=== PATIENT | male | born 1960 | race Two or more races ===

== ENCOUNTER 2017-03-01 07:57 | Observation (INO) | payer BC, OTHER ==
[2017-03-01] MEDS ORDERED: ASPIRIN 81 MG CHEWABLE TABLETS PO ONE (08:38)
[2017-03-01 08:59] LABS: BASOPHIL 1.4 % (0-2.0); EOSINOPHIL 5.8 % (0-4.5); MCH 29.6 pg (25.7-33.7); MCHC 34.6 g/dl (32.0-35.9); MEAN CELL VOLUME 85.7 fl (80-96); MEAN PLT VOLUME 8.6 fl (7.5-11.1); NEUTROPHILS 49.4 % (42.8-82.8); PLATELET COUNT 236 K/MM3 (134-434); RDW 13.2 % (11.9-15.9); WHITE BLOOD COUNT 5.3 K/mm3 (4.0-10.0)
[2017-03-01 09:22] LABS: INR 1.06 (0.82-1.09); PROTHROMBIN TIME (PATIENT) 11.7 SEC (9.98-11.88)
[2017-03-01 09:27] LABS: ALBUMIN 3.8 g/dl (3.4-5.0); ANION GAP 11 (8-16); BILIRUBIN,TOTAL 0.6 mg/dL (0.2-1.0); CALCIUM 8.9 mg/dL (8.5-10.1); CO2 24 mmol/L (21-32); COCKROFT - GAULT 145.24; CREATININE 0.9 mg/dL (0.7-1.3); GLUCOSE,RANDOM 106 mg/dL (74-106); MAGNESIUM 1.9 mg/dL (1.8-2.4); SGPT/ALT 49 U/L (12-78)
[2017-03-01 09:30] LABS: ALK PHOS 68 U/L (45-117); TROPONIN I < 0.02 ng/ml (0.00-0.05)
[2017-03-01 09:33] LABS: SGOT/AST 35 U/L (15-37)
--- NOTE | 2017-03-01 09:52 | PDOC ---
History of Present Illness - General Chief Complaint: Chest Pain Stated Complaint: CHEST PAIN Time Seen by Provider: 03/01/17 08:28 History Source: Patient, Significant Other Exam Limitations: No Limitations - History of Present Illness Initial Comments: 03/01/17 09:54 HPI: This 56 yr old male presents to ER with his with c/o chest pain, dizziness and near syncope upon awaking this morning. He has a significant hx of cardiac stents. Two stents were placed in Dec 2016 and one stent was placed on this past Wednesday in [place]. His sericulturist is Dr. Frank. He took his morning medications prior to coming in . Denies shortness of breath, nausea vomiting, headache, neuro changes, fever. He states since his arrival to the ER he is chest pain free. Chief Compliant: chest pain, near syncope Pain location:midsternal pain Duration: one hour Modifying factors:recent stent placement Quality: squeezing Radiating:to the left side of chest wall Severity: moderate Time: now resolved. PMH: CAD, gout, HLD, HTN FH: Pt has not recently traveled outside the country in the last 30 days. Pt has not been in contact with people who have traveled out of the country, in contact with people who have been ill with fever, n, v, d. SH: smoking use: NONE illicit drug use: NONE alcohol use: NONE employment/educational status: sexual history: PSH: cardiac stents x 3 Home med use noted on JAN Allergies: NKA PCP: Dr. Jensen Cards: Dr. Frank Past History - Past Medical History Allergies/Adverse Reactions: Allergies Allergy/AdvReac Type Severity Reaction Status Date / Time No Known Allergies Allergy Verified 03/01/17 08:10 Home Medications: Ambulatory Orders Aspirin [Ecotrin] 81 mg PO DAILY 05/14/15 Colchicine 0.6 mg PO BID #30 tablet 05/14/15 Gemfibrozil 600 mg PO DAILY 05/14/15 Lisinopril [Prinivil -] 20 mg PO DAILY 05/14/15 Metoprolol Succinate [Toprol Xl -] 25 mg PO DAILY 05/14/15 Multivitamins [Tab-A-Vit -] 1 tab PO DAILY 05/14/15 Oxycodone HCl/Acetaminophen [Percocet 5/325 -] 1 tab PO Q6H #10 tablet 05/14/15 Cardiac Disorders: Yes (CAD) HTN: Yes Hypercholesterolemia: Yes - Surgical History Appendectomy: Yes Cardiac Surgery: Yes (STENTS X 3) - Psycho/Social/Smoking Cessation Hx Anxiety: No Suicidal Ideation: No Smoking History: Current some day smoker Have you smoked in the past 12 months: Yes Number of Cigarettes Smoked Daily: 5 Information on smoking cessation initiated: Yes 'Breaking Loose' booklet given: 03/01/17 Hx Alcohol Use: No Drug/Substance Use Hx: No Substance Use Type: Alcohol Cardiac Specific PMH - Complaint Specific PMHX Cardiac Stent: Yes Review of Systems - Review of Systems Able to Perform ROS?: Yes Comments:: 03/01/17 10:11 General statement: "I had chest pain and was dizzy this morning" Hematology: neg history of bleeding/blood thinners on Gemfibrozil Skin: Neg for lesions, rash, bruising. HEENT: Neg symptoms Respiratory: Neg SOB or difficulty in breathing Cardiac: +chest pain GI: Neg pain, n/v : Neg problems on voiding MS: Neg for joint pain/stiffness, no edema Neuro: Neg for LOC, weakness,+ dizzy Endocrine: Neg for excess thirst/hunger, cold/heat intolerance, excess sweating Allergies: Neg for allergies *Physical Exam - Vital Signs Last Vital Signs Temp Pulse Resp BP Pulse Ox 98.6 F 69 18 160/97 100 03/01/17 08:10 03/01/17 08:10 03/01/17 08:10 03/01/17 08:10 03/01/17 08:10 - Physical Exam Comments: 03/01/17 10:12 General Appearance: This well appearing obese male presents with + chest pain and + dizziness V/S: hemodynamically stable, afebrile Skin: WNL of pt's skin color, no signs of pallor, mottling, cyanosis Head:symmetrical Eyes: EOM's intact, PERRLA Ears: denies pain Nose: patent Throat: lips, teeth, gums, tongue, buccal mucos pink and moist Lungs: Chest symmetry equal. Cap refill <3 seconds. Lung sounds clear Cardiac: PMI at R 4MCL space, pos S1 and S2, regular rate. Abdomen: Soft, round, nontender : Not observed Muscularskeletal: Gait steady, ambulated in to ER, no edema +PMS Neuro: AAOx3, cognitively intact, speech clear and appropriate. Heart Score/ECG Review - History History: Highly suspicious - Electrocardiogram EKG: Non specific repolarization disturbance - Age Age: 45-65 - Risk Factors Risk Factors Heart Score: Yes Hx Hypercholesterolemia, Yes Hx Hypertension, Yes Smoking History, Yes Positive family hx of cardiac disease, Yes Hx Obesity Based on the list above the patient has:: >/=3 risk factors or Hx atherosclerotic disease - Troponin Troponin: </= normal limit - Score Heart Score - Total: 6 ED Treatment Course - LABORATORY CBC & Chemistry Diagram: 03/01/17 08:40 03/01/17 08:40 - ADDITIONAL ORDERS Additional order review: Laboratory Results 03/01/17 03/01/17 03/01/17 08:40 08:40 08:40 INR 1.06 Sodium 139 Potassium 4.4 Chloride 104 Carbon Dioxide 24 Anion Gap 11 BUN 12 Creatinine 0.9 D Creat Clearance w eGFR > 60 Random Glucose 106 Calcium 8.9 Magnesium 1.9 Total Bilirubin 0.6 AST 35 D ALT 49 D Alkaline Phosphatase 68 D Creatine Kinase 208 Creatine Kinase Index 0.8 CK-MB (CK-2) 1.551 CK-MB (CK-2) Rel Index Cancelled Troponin I < 0.02 Total Protein 7.0 Albumin 3.8 03/01/17 08:40 RBC 4.95 MCV 85.7 MCHC 34.6 RDW 13.2 MPV 8.6 Neutrophils % 49.4 D Lymphocytes % 35.4 D Monocytes % 8.0 Eosinophils % 5.8 H Basophils % 1.4 D - RADIOLOGY Radiology Studies Ordered: Category Date Time Status CHEST X-RAY PORTABLE* [RAD] Stat Radiology 03/01/17 08:39 Completed - Medications Given in the ED: ED Medications Discontinued Medications Generic Name Dose Route Start Last Admin Trade Name Freq PRN Reason Stop Dose Admin Aspirin 162 mg 03/01/17 08:38 03/01/17 08:54 Asa - PO 03/01/17 08:39 162 mg ONCE ONE Administration Medical Decision Making - Critical Care Time Total Critical Care Time (minutes): 30 Critical Care Statement: The care of this patient involved high complexity decision making to prevent further life threatening deterioration of the patient 's condition and/or to evalute & treat vital organ system(s) failure or risk of failure. - Medical Decision Making 03/01/17 10:14 A/P 56 year old male with c/o chest pain and dizziness this morning with a significant recent cardiac stent placed. 1. Chest pain and near syncope -ASA 162 po given -EKG with T wave abnormalities in Lead I, AVL, V4, 5, 6 without old EKG to compare to -Spoke with Dr. Frank who will see pt - first troponin negative -Admit to telemetry inpt. Spoke with Dr. Chapman who was suppose to be admitting for Dr. Jensen however wanted pt to be admitted to service today spoke wit Dr Fraser for admitting Tele obs. *DC/Admit/Observation/Transfer Diagnosis at time of Disposition: Chest pain, Near syncope - Discharge Dispostion Condition at time of disposition: Guarded Admit: Yes - Referrals Referrals: Doyle Jensen [Primary Care Provider] -
--- NOTE | 2017-03-01 10:15 | CON.CARD ---
Consult Consult Specialty:: Cardiology - History of Present Illness History of Present Illness: This 56 yr old male presents to ER with his with c/o chest pain, dizziness and near syncope upon awaking this morning. He has a significant hx of cardiac stents. Two stents were placed LAD in Dec 2016 and one stent was placed D1 on this past Wednesday at [facility]. He took his morning medications prior to coming in . Denies shortness of breath, nausea vomiting, headache, neuro changes, fever. He states since his arrival to the ER he is chest pain free. patient describe his discomfort as tingling radiating from the chest to the left side of his face. - History Source History Provided By: Patient, Medical Record - Past Medical History Cardio/Vascular: Yes: CAD, HTN, Hyperlipdemia - Alcohol/Substance Use Hx Alcohol Use: No - Smoking History Smoking history: Current some day smoker Have you smoked in the past 12 months: Yes Aproximately how many cigarettes per day: 5 Home Medications - Allergies Allergies/Adverse Reactions: Allergies Allergy/AdvReac Type Severity Reaction Status Date / Time No Known Allergies Allergy Verified 03/01/17 08:10 - Home Medications Home Medications: Ambulatory Orders Aspirin [Ecotrin] 81 mg PO DAILY 05/14/15 Colchicine 0.6 mg PO BID #30 tablet 05/14/15 Gemfibrozil 600 mg PO DAILY 05/14/15 Lisinopril [Prinivil -] 20 mg PO DAILY 05/14/15 Metoprolol Succinate [Toprol Xl -] 25 mg PO DAILY 05/14/15 Multivitamins [Tab-A-Vit -] 1 tab PO DAILY 05/14/15 Oxycodone HCl/Acetaminophen [Percocet 5/325 -] 1 tab PO Q6H #10 tablet 05/14/15 Review of Systems - Review of Systems Constitutional: reports: No Symptoms Eyes: reports: No Symptoms HENT: reports: No Symptoms Neck: reports: No Symptoms Cardiovascular: reports: Chest Pain Gastrointestinal: reports: No Symptoms Genitourinary: reports: No Symptoms Breasts: reports: No Symptoms Reported Musculoskeletal: reports: No Symptoms Integumentary: reports: No Symptoms Neurological: reports: No Symptoms Endocrine: reports: No Symptoms Hematology/Lymphatic: reports: No Symptoms Psychiatric: reports: No Symptoms Vital Signs: Vital Signs Temperature 98.6 F 03/01/17 08:10 Pulse Rate 69 03/01/17 08:10 Respiratory Rate 18 03/01/17 08:10 Blood Pressure 160/97 03/01/17 08:10 O2 Sat by Pulse Oximetry (%) 100 03/01/17 08:10 Constitutional: Yes: Well Nourished, No Distress, Calm Eyes: Yes: WNL, Conjunctiva Clear, EOM Intact HENT: Yes: WNL, Atraumatic, Normocephalic Neck: Yes: WNL, Supple, Trachea Midline Respiratory: Yes: WNL, Regular, CTA Bilaterally Gastrointestinal: Yes: WNL, Normal Bowel Sounds Renal/: Yes: WNL Cardiovascular: Yes: WNL, Regular Rate and Rhythm Heart Sounds: Yes: S1, S2 Murmur: Yes: Systolic Murmur, Grade 2 Musculoskeletal: Yes: WNL Extremities: Yes: WNL Integumentary: Yes: WNL Neurological: Yes: WNL, Alert, Oriented ...Motor Strength: WNL Psychiatric: Yes: WNL, Alert, Oriented - Other Data Labs, Other Data: CBC, BMP 03/01/17 08:40 03/01/17 08:40 INR, PTT INR 1.06 (0.82-1.09) 03/01/17 08:40 Troponin, BNP 03/01/17 08:40 Troponin I < 0.02 Troponin, BNP 03/01/17 08:40 Troponin I < 0.02 Laboratory Tests 03/01/17 03/01/17 03/01/17 08:40 08:40 08:40 WBC 5.3 D RBC 4.95 Hgb 14.7 Hct 42.4 MCV 85.7 MCHC 34.6 RDW 13.2 Plt Count 236 MPV 8.6 Neutrophils % 49.4 D Lymphocytes % 35.4 D Monocytes % 8.0 Eosinophils % 5.8 H Basophils % 1.4 D INR 1.06 Sodium 139 Potassium 4.4 Chloride 104 Carbon Dioxide 24 Anion Gap 11 BUN 12 Creatinine 0.9 D Creat Clearance w eGFR > 60 Random Glucose 106 Calcium 8.9 Magnesium 1.9 Total Bilirubin 0.6 AST 35 D ALT 49 D Alkaline Phosphatase 68 D Creatine Kinase 208 Creatine Kinase Index 0.8 CK-MB (CK-2) 1.551 CK-MB (CK-2) Rel Index Troponin I < 0.02 Total Protein 7.0 Albumin 3.8 03/01/17 08:40 WBC RBC Hgb Hct MCV MCHC RDW Plt Count MPV Neutrophils % Lymphocytes % Monocytes % Eosinophils % Basophils % INR Sodium Potassium Chloride Carbon Dioxide Anion Gap BUN Creatinine Creat Clearance w eGFR Random Glucose Calcium Magnesium Total Bilirubin AST ALT Alkaline Phosphatase Creatine Kinase Creatine Kinase Index CK-MB (CK-2) CK-MB (CK-2) Rel Index Cancelled Troponin I Total Protein Albumin Imaging - Results Chest X-ray: Image Reviewed (no i/e) EKG: Image Reviewed (sr inverted t waves lateral leads no changes from last week ) Problem List - Problems (1) Chest pain Code(s): R07.9 - CHEST PAIN, UNSPECIFIED (2) Near syncope Code(s): R55 - SYNCOPE AND COLLAPSE Assessment/Plan ashd s/p maryjo d1 last week h/o 2 maryjo lad dec 2016 htn hld atypical cp/dizziness echo ekg no changes Plan increase lisinoprilto 40 and toprol to 50 qd keep ldl below 70 r/o mi 3 sets of ce cont dapt monitor on telemetry d/c home in am if 3 sets of ce negative and patient is asymptomatic
--- NOTE | 2017-03-01 10:18 | PDOC ---
[id number] 100 03/01/17 08:10 03/01/17 08:10 03/01/17 08:10 03/01/17 08:10 03/01/17 08:10 ED Treatment Course - LABORATORY CBC & Chemistry Diagram: 03/01/17 08:40 03/01/17 08:40 - ADDITIONAL ORDERS Additional order review: Laboratory Results 03/01/17 03/01/17 03/01/17 08:40 08:40 08:40 INR 1.06 Sodium 139 Potassium 4.4 Chloride 104 Carbon Dioxide 24 Anion Gap 11 BUN 12 Creatinine 0.9 D Creat Clearance w eGFR > 60 Random Glucose 106 Calcium 8.9 Magnesium 1.9 Total Bilirubin 0.6 AST 35 D ALT 49 D Alkaline Phosphatase 68 D Creatine Kinase 208 CK-MB (CK-2) Rel Index Cancelled Troponin I < 0.02 Total Protein 7.0 Albumin 3.8 03/01/17 08:40 RBC 4.95 MCV 85.7 MCHC 34.6 RDW 13.2 MPV 8.6 Neutrophils % 49.4 D Lymphocytes % 35.4 D Monocytes % 8.0 Eosinophils % 5.8 H Basophils % 1.4 D - Medications Given in the ED: ED Medications Discontinued Medications Generic Name Dose Route Start Last Admin Trade Name Freq PRN Reason Stop Dose Admin Aspirin 162 mg 03/01/17 08:38 03/01/17 08:54 Asa - PO 03/01/17 08:39 162 mg ONCE ONE Administration Medical Decision Making - Medical Decision Making 03/01/17 10:16 Patient seen and evaluated with the nurse practitioner. I agree with the overall evaluation, assessment, and management with the following summary of visit: 56-year-old male with known CAD with 3 stents, last one placed 3 days ago presents now with chest pain. Agree with exam. EKG with lateral T-wave inversions but no acute ST changes 56-year-old male with recently placed stent presents with chest pain, concerning for acute obstruction or unstable. Agree with management as outlined, labs and anti-coagulation and cardiology consultation stat. *DC/Admit/Observation/Transfer Diagnosis at time of Disposition: Near syncope Chest pain Qualifiers: Chest pain type: unspecified Qualified Code(s): R07.9 - Chest pain, unspecified - Discharge Dispostion Disposition: HOME Condition at time of disposition: Guarded
--- NOTE | 2017-03-01 11:20 | EKG ---
Test Reason : Blood Pressure : / mmHG Vent. Rate : 069 BPM Atrial Rate : 069 BPM P-R Int : 208 ms QRS Dur : 088 ms QT Int : 384 ms P-R-T Axes : 039 049 144 degrees QTc Int : 411 ms NORMAL SINUS RHYTHM POSSIBLE LEFT ATRIAL ENLARGEMENT T WAVE ABNORMALITY, CONSIDER LATERAL ISCHEMIA ABNORMAL ECG NO PREVIOUS ECGS AVAILABLE Confirmed by MIGUELANGEL DUNN MD ([id number]) on 03/01/2017 11:19:38 AM Referred By: Confirmed By:MIGUELANGEL DUNN MD
[2017-03-01] MEDS ORDERED: ATORVASTATIN CA 80 MG TABLET (FP) PO ONE (13:21)
[2017-03-01] MEDS ORDERED: LISINOPRIL 20 MG TABLET (FP) PO ONE (13:22)
[2017-03-01] MEDS ORDERED: METOPROLOL SUCCINATE 25 MG TAB.SR.24H (FP) PO ONE (13:45)
[2017-03-01] MEDS ORDERED: LISINOPRIL 20 MG TABLET (FP) ONE (14:12)
[2017-03-01] MEDS ORDERED: METOPROLOL SUCCINATE 50 MG TAB.SR.24H (FP) ONE (14:12)
[2017-03-01] MEDS ORDERED: ATORVASTATIN CA 80 MG TABLET (FP) ONE (14:13)
[2017-03-01 14:29] LABS: CHOLESTEROL 183 mg/dL (50-200); LDL CHOLESTEROL (ONLY SJRH) 108 mg/dL (5-100)
--- NOTE | 2017-03-01 19:00 | HP ---
Admitting History and Physical - Primary Care Physician PCP: Chary Salas - Admission Chief Complaint: chest pain History of Present Illness: 56 yr old male presents to ER with his with c/o chest pain, dizziness and near syncope upon awaking this morning. He has a significant hx of cardiac stents. Two stents were placed in Dec 2016 and one stent was placed on this past Wednesday in [place]. His insurance verification representative is Dr. Frank. He took his morning medications prior to coming in . Denies shortness of breath, nausea vomiting, headache, neuro changes, fever. He states since his arrival to the ER he is chest pain free. - Past Medical History Cardiovascular: Yes: CAD, HTN, Hyperlipdemia, Other (cardiac stents) - Smoking History Smoking history: Current some day smoker Have you smoked in the past 12 months: Yes Aproximately how many cigarettes per day: 5 - Alcohol/Substance Use Hx Alcohol Use: No Home Medications - Allergies Allergies/Adverse Reactions: Allergies Allergy/AdvReac Type Severity Reaction Status Date / Time No Known Allergies Allergy Verified 03/01/17 08:10 - Home Medications Home Medications: Ambulatory Orders Aspirin [Ecotrin] 81 mg PO DAILY 03/01/17 Cholecalciferol (Vitamin D3) [Vitamin D3 -] 1,000 unit PO DAILY 03/01/17 Clopidogrel Bisulfate [Clopidogrel] 75 mg PO DAILY 03/01/17 Gemfibrozil [Lopid -] 600 mg PO DAILY 03/01/17 Metoprolol Succinate [Toprol XL -] 50 mg PO DAILY 03/01/17 Multivitamins [Multivit ([facility] Formulary)] 1 tab PO DAILY 03/01/17 Quinapril HCl [Accupril -] 20 mg PO DAILY 03/01/17 Rosuvastatin [Crestor -] 20 mg PO DAILY 03/01/17 Colchicine 0.6 mg PO 03/02/17 Lisinopril 20 mg PO DAILY 03/02/17 Oxycodone HCl/Acetaminophen [Oxycodone-Acetaminophen 5-325] 1 tablet PO ASDIR PRN 03/02/17 Physical Examination Vital Signs: Vital Signs Temperature 98.2 F 03/01/17 15:58 Pulse Rate 64 03/01/17 15:58 Respiratory Rate 16 03/01/17 15:58 Blood Pressure 140/67 03/01/17 15:58 O2 Sat by Pulse Oximetry (%) 97 03/01/17 15:58 Constitutional: Yes: No Distress HENT: Yes: Atraumatic Neck: Yes: Supple Cardiovascular: Yes: Regular Rate and Rhythm Respiratory: Yes: CTA Bilaterally Gastrointestinal: Yes: Normal Bowel Sounds Extremities: Yes: WNL Neurological: Yes: Alert, Oriented Problem List - Problems (1) Chest pain Assessment/Plan: tele observation serial cardiac enzyme cardiology consult continue home meds Code(s): R07.9 - CHEST PAIN, UNSPECIFIED (2) Near syncope Assessment/Plan: monitor bp and heart rate Code(s): R55 - SYNCOPE AND COLLAPSE Assessment/Plan Laboratory Tests 03/01/17 03/01/17 03/01/17 08:40 08:40 08:40 WBC 5.3 D RBC 4.95 Hgb 14.7 Hct 42.4 MCV 85.7 MCHC 34.6 RDW 13.2 Plt Count 236 MPV 8.6 Neutrophils % 49.4 D Lymphocytes % 35.4 D Monocytes % 8.0 Eosinophils % 5.8 H Basophils % 1.4 D INR 1.06 Sodium 139 Potassium 4.4 Chloride 104 Carbon Dioxide 24 Anion Gap 11 BUN 12 Creatinine 0.9 D Creat Clearance w eGFR > 60 Random Glucose 106 Calcium 8.9 Magnesium 1.9 Total Bilirubin 0.6 AST 35 D ALT 49 D Alkaline Phosphatase 68 D Creatine Kinase 208 Creatine Kinase Index 0.8 CK-MB (CK-2) 1.551 CK-MB (CK-2) Rel Index Troponin I < 0.02 Total Protein 7.0 Albumin 3.8 Triglycerides 205 H Cholesterol 183 Total LDL Cholesterol 108 H HDL Cholesterol 48 03/01/17 03/01/17 08:40 13:55 WBC RBC Hgb Hct MCV MCHC RDW Plt Count MPV Neutrophils % Lymphocytes % Monocytes % Eosinophils % Basophils % INR Sodium Potassium Chloride Carbon Dioxide Anion Gap BUN Creatinine Creat Clearance w eGFR Random Glucose Calcium Magnesium Total Bilirubin AST ALT Alkaline Phosphatase Creatine Kinase Creatine Kinase Index CK-MB (CK-2) CK-MB (CK-2) Rel Index Cancelled Troponin I Total Protein Albumin Triglycerides Cancelled Cholesterol Cancelled Total LDL Cholesterol Cancelled HDL Cholesterol Cancelled
--- NOTE | 2017-03-01 19:18 | PN ---
Progress Note (short form) - Note Progress Note: Received phone call from the nurse Chela that patient is refusing increased dose of statins and amairani-I. Problem List - Problems (1) Chest pain Code(s): R07.9 - CHEST PAIN, UNSPECIFIED (2) Near syncope Code(s): R55 - SYNCOPE AND COLLAPSE
[2017-03-01 19:45] LABS: TROPONIN I < 0.02 ng/ml (0.00-0.05)
[2017-03-02 02:50] VITALS: BMI 32.3
[2017-03-02 09:20] VITALS: BP 142/80; PULSE 75; TEMP 98.4
[2017-03-02] MEDS ORDERED: LISINOPRIL 20 MG TABLET (FP) PO SCH (10:00)
[2017-03-02] MEDS ORDERED: ASPIRIN 81 MG CHEWABLE TABLETS PO SCH (10:00)
[2017-03-02] MEDS ORDERED: CLOPIDOGREL BISULFATE 75 MG TABLET (FP) PO SCH (10:00)
[2017-03-02] MEDS ORDERED: METOPROLOL SUCCINATE 50 MG TAB.SR.24H (FP) PO SCH (10:00)
--- NOTE | 2017-03-02 11:32 | PN ---
Progress Note, Physician Chief Complaint: Pt sitting up at bedside; asymptomatic. History of Present Illness: This 56 yr old male presents to ER with his with c/o chest pain, dizziness and near syncope upon awaking this morning. He has a significant hx of cardiac stents. Two stents were placed in Dec 2016 and one stent was placed on this past Wednesday in [place]. His carver and checkerer specials is Dr. Frank. He took his morning medications prior to coming in . Denies shortness of breath, nausea vomiting, headache, neuro changes, fever. He states since his arrival to the ER he is chest pain free. Chief Compliant: chest pain, near syncope - Current Medication List Current Medications: Active Medications Aspirin (Asa -) 81 mg PO DAILY [facility] Last Admin: 03/02/17 09:16 Dose: 81 mg Clopidogrel Bisulfate (Plavix -) 75 mg PO DAILY [facility] Last Admin: 03/02/17 09:16 Dose: 75 mg Lisinopril (Prinivil) 40 mg PO DAILY [facility] Last Admin: 03/02/17 09:16 Dose: 40 mg Metoprolol Succinate (Toprol Xl -) 50 mg PO DAILY [facility] Last Admin: 03/02/17 09:16 Dose: 50 mg - Objective Vital Signs: Vital Signs Temperature 98.4 F 03/02/17 09:19 Pulse Rate 75 03/02/17 09:19 Respiratory Rate 20 03/02/17 09:19 Blood Pressure 142/80 03/02/17 09:19 O2 Sat by Pulse Oximetry (%) 97 03/01/17 20:15 Constitutional: Yes: No Distress Eyes: Yes: WNL HENT: Yes: Nasal Congestion Neck: Yes: WNL Cardiovascular: Yes: WNL Respiratory: Yes: WNL Gastrointestinal: Yes: Soft ...Rectal Exam: Yes: Deferred Genitourinary: No: Anuria Musculoskeletal: Yes: WNL Extremities: Yes: WNL Edema: No Peripheral Pulses WNL: Yes Integumentary: Yes: WNL Wound/Incision: Yes: Clean/Dry Neurological: Yes: WNL ...Motor Strength: WNL Psychiatric: Yes: WNL Labs: INR, PTT INR 1.06 (0.82-1.09) 03/01/17 08:40 Abnormal Lab Results 03/01/17 08:40 Triglycerides 205 H Total LDL Cholesterol 108 H Problem List - Problems (1) Swelling of knee joint, right Code(s): M25.461 - EFFUSION, RIGHT KNEE (2) Atypical chest pain Assessment/Plan: TNI < 0.02 x 2 ; no acute EKG changes; recnet coronary angiogram. Continue present medications (ASA, clopidogrel, lisinopril, metoprolol ER). Code(s): R07.89 - OTHER CHEST PAIN (3) Coronary artery disease Assessment/Plan: s/p coronary stents; most recent angiogram was within the past 2 weeks. LDL cholestero 108 mg/dL; ideally, pt should use diet, exercise, and medication (eg statin high-dose, possibly with addition of Zetia) to keep LDL well below 70 mg/dL. The importance of increasing daily aerobic exercise was emphasized (his says he does little walking, but he believes he walks quite a bit at work; she plans to get him a Fitbit to monitor how many steps he takes) He plans to bicycle more. Serial blood pressure checks. From a cardiac standpoint, pt may be followed as an outpatient. He will see Dr. Tatum later this week. Code(s): I25.10 - ATHSCL HEART DISEASE OF [place] CORONARY ARTERY W/O ANG PCTRS (4) Anxiety Assessment/Plan: relaxation techniques may be of benefit. Code(s): F41.9 - ANXIETY DISORDER, UNSPECIFIED
--- NOTE | 2017-03-02 12:25 | DS ---
Physical Examination Vital Signs: Vital Signs Temperature 98.4 F 03/02/17 09:19 Pulse Rate 75 03/02/17 09:19 Respiratory Rate 20 03/02/17 09:19 Blood Pressure 142/80 03/02/17 09:19 O2 Sat by Pulse Oximetry (%) 97 03/02/17 09:15 Constitutional: Yes: No Distress HENT: Yes: Atraumatic Neck: Yes: Supple Cardiovascular: Yes: Regular Rate and Rhythm Respiratory: Yes: CTA Bilaterally Gastrointestinal: Yes: Normal Bowel Sounds Extremities: Yes: WNL Neurological: Yes: Alert, Oriented Discharge Summary Reason For Visit: CHEST PAIN/SYNCOPE Current Active Problems Anxiety (Acute) Atypical chest pain (Acute) Chest pain (Acute) Coronary artery disease (Acute) Near syncope (Acute) Condition: Guarded - Instructions Referrals: Doyle Jensen [Primary Care Provider] - Olaf Tatum MD [Staff Physician] - Disposition: HOME - Home Medications Comprehensive Discharge Medication List: Ambulatory Orders Aspirin [Ecotrin] 81 mg PO DAILY 03/01/17 Cholecalciferol (Vitamin D3) [Vitamin D3 -] 1,000 unit PO DAILY 03/01/17 Clopidogrel Bisulfate [Clopidogrel] 75 mg PO DAILY 03/01/17 Gemfibrozil [Lopid -] 600 mg PO DAILY 03/01/17 Metoprolol Succinate [Toprol XL -] 50 mg PO DAILY 03/01/17 Multivitamins [Multivit ([facility] Formulary)] 1 tab PO DAILY 03/01/17 Quinapril HCl [Accupril -] 20 mg PO DAILY 03/01/17 Rosuvastatin [Crestor -] 20 mg PO DAILY 03/01/17 Colchicine 0.6 mg PO 03/02/17 Lisinopril 20 mg PO DAILY 03/02/17 Oxycodone HCl/Acetaminophen [Oxycodone-Acetaminophen 5-325] 1 tablet PO ASDIR PRN 03/02/17 [facility] 1 week clinically stable
== END 2017-03-02 13:00 | disposition home or self-care (01) ==
LOC: JER 07:57 → JERBED 12:22 → J4S 20:03
PROVIDERS: ADMIT Internal Medicine; ATTEND Internal Medicine
DX: R07.89 Other chest pain (principal); R55 Syncope and collapse; I25.10 Atherosclerotic heart disease of native coronary artery without angina pectoris; Z95.5 Presence of coronary angioplasty implant and graft; M10.9 Gout, unspecified; I10 Essential (primary) hypertension; E78.5 Hyperlipidemia, unspecified; Z79.82 Long term (current) use of aspirin; F17.210 Nicotine dependence, cigarettes, uncomplicated; F41.9 Anxiety disorder, unspecified; E66.9 Obesity, unspecified; Z68.32 Body mass index [BMI] 32.0-32.9, adult
CPT/HCPCS: 36415; 71010-TC; 80053; 80061; 82550; 82553; 83721; 83735; 84484; 85025; 85610; 93005; 93010; 93306-TC; 99285-25; G0378